=== PATIENT | male | born 1990 | race Caucasian/White ===

== ENCOUNTER → 2024-10-08 07:10 | Outpatient (REF) | payer BC, SELFPAY | LOC: RAD 07:10 | PROVIDERS: ATTENDING PHYSICIAN Surgery; FAMILY PHYSICIAN Family Medicine | DX: N50.811 Right testicular pain (principal) | CPT/HCPCS: 76870; 93976 ==

== ENCOUNTER → 2024-10-16 06:57 | Outpatient (REF) | payer BC, SELFPAY ==
[2024-10-16 08:44] LABS: Beta HCG Quantitative < 2.39 mIU/ml
[2024-10-16 08:46] LABS: LDH 182 U/L (120-246)
== END ==
LOC: RAD 06:57
PROVIDERS: ATTENDING PHYSICIAN Surgery; FAMILY PHYSICIAN Family Medicine
DX: N50.9 Disorder of male genital organs, unspecified (principal)
CPT/HCPCS: 36415; 71260; 74177; 82105; 83615; 84702; Q9967

== ENCOUNTER → 2024-10-19 06:53 | Outpatient (REF) | payer BC, SELFPAY | LOC: HWRAD 06:53 | PROVIDERS: ATTENDING PHYSICIAN Surgery; FAMILY PHYSICIAN Family Medicine | DX: N50.9 Disorder of male genital organs, unspecified (principal) | CPT/HCPCS: 76870; 93976 ==

== ENCOUNTER 2024-10-23 06:15 | Day surgery (SDC) | payer BC, SELFPAY ==
[2024-10-23] VITALS (9 sets, daily range): BP systolic 126–154; BP diastolic 80–96; BMI 30.8
[2024-10-23] MEDS: NORMOSOL-R/PLASMALYTE-A 1000 IV (12:38)
[2024-10-23] MEDS: DILAUDID 0.25 MG IV ×2 (15:40→15:53)
== END 2024-10-23 16:50 | disposition home or self-care (01) ==
LOC: SDS 06:15
PROVIDERS: ATTENDING PHYSICIAN Surgery
DX: C62.91 Malignant neoplasm of right testis, unspecified whether descended or undescended (principal)
CPT/HCPCS: 54530; 88309

== ENCOUNTER → 2025-05-13 06:51 | Outpatient (REF) | payer BC, SELFPAY ==
[2025-05-13 09:11] LABS: LDH 183 U/L (120-246)
[2025-05-13 14:56] LABS: AFP Male/Tumor Marker 3.43 ng/ml
[2025-05-14 22:35] LABS: HCG Male/Tumor Marker <1 IU/L (0-3)
== END ==
LOC: RAD 06:51
PROVIDERS: ATTENDING PHYSICIAN Surgery; FAMILY PHYSICIAN Family Medicine
DX: C62.11 Malignant neoplasm of descended right testis (principal)
CPT/HCPCS: 36415; 74177; 82105; 83615; 84702; Q9967